=== PATIENT | male | born 1950 | race African-American/Black ===

== ENCOUNTER 2020-09-15 09:37 | Observation (INO) | payer OTHER ==
[2020-09-15 09:55] VITALS: BMI 29.0
[2020-09-15 11:24] LABS: BASO % 0.9 % (0-2.0); EOS % 0.7 % (0-4.5); HEMATOCRIT 42.1 % (35.4-49); LYMPH % 26.5 % (8-40); MCH 31.1 pg (25.7-33.7); MCHC 33.3 g/dl (32.0-35.9); MEAN CELL VOLUME 93.3 fl (80-96); MEAN PLT VOLUME 7.8 fl (7.5-11.1); MONO % 8.1 % (3.8-10.2); NEUT % 63.8 % (42.8-82.8); PLATELET COUNT 416 K/MM3 (134-434); RBC 4.51 M/mm3 (4.00-5.60); RDW 13.7 % (11.9-15.9); WHITE BLOOD COUNT 6.1 K/mm3 (4.0-10.0)
[2020-09-15 11:42] LABS: CHLORIDE 106 mmol/L (98-107); POTASSIUM 4.2 mmol/L (3.5-5.1); SODIUM 137 mmol/L (136-145)
[2020-09-15 11:44] LABS: CALCIUM 9.2 mg/dL (8.5-10.1)
[2020-09-15 11:45] LABS: ALBUMIN 3.4 g/dl (3.4-5.0); ANION GAP 8 MMOL/L (8-16); BLOOD UREA NITROGEN 12.2 mg/dL (7-18); CO2 24 mmol/L (21-32); GLUCOSE,RANDOM 96 mg/dL (74-106)
[2020-09-15 11:48] LABS: CREATININE 1.1 mg/dL (0.55-1.3); SGOT/AST 17 U/L (15-37); SGPT/ALT 24 U/L (13-61)
[2020-09-15 11:50] LABS: BILIRUBIN,TOTAL 0.4 mg/dL (0.2-1); TOT PROT 7.6 g/dl (6.4-8.2)
[2020-09-15 11:51] LABS: ALK PHOS 90 U/L (45-117)
[2020-09-15 13:34] LABS: PH,URINE 5.5 (5.0-8.0); URINE APPEARANCE CLEAR; URINE BILIRUBIN NEGATIVE (NEGATIVE); URINE COLOR DK YELLOW; URINE GLUCOSE (UA) NEGATIVE (NEGATIVE); URINE KETONE TRACE (NEGATIVE); URINE LEUK ESTERASE NEGATIVE (NEGATIVE); URINE NITRITE NEGATIVE (NEGATIVE); URINE PROTEIN TRACE (NEGATIVE)
[2020-09-15] MEDS ORDERED: SODIUM CHLORIDE 1,000 ML IV SCH (16:00)
[2020-09-15] MEDS ORDERED: LISINOPRIL 10 MG TABLET PO SCH (16:30)
[2020-09-15] MEDS ORDERED: ACETAMINOPHEN 500 MG TABLET (FP) PO ONE (17:14)
[2020-09-15] MEDS ORDERED: ACETAMINOPHEN 325 MG TABLET (FP) ONE (17:28)
[2020-09-15] MEDS ORDERED: LISINOPRIL 5 MG TABLET ONE (17:29)
[2020-09-15] MEDS: INSULIN SLIDING SCALE (NOVOLOG) 1 VIAL SQ SCH ×2 (17:35→23:08)
[2020-09-16 06:07] VITALS: BP 149/97; PULSE 77; TEMP 98.3
[2020-09-16 07:16] LABS: HEMATOCRIT 37.9 % (35.4-49); MCH 31.3 pg (25.7-33.7); MCHC 34.2 g/dl (32.0-35.9); MEAN CELL VOLUME 91.6 fl (80-96); MEAN PLT VOLUME 8.4 fl (7.5-11.1); PLATELET COUNT 375 K/MM3 (134-434); RBC 4.14 M/mm3 (4.00-5.60); RDW 13.9 % (11.9-15.9); WHITE BLOOD COUNT 5.9 K/mm3 (4.0-10.0)
[2020-09-16 07:26] LABS: POTASSIUM 3.9 mmol/L (3.5-5.1)
[2020-09-16 07:30] LABS: CALCIUM 8.7 mg/dL (8.5-10.1)
[2020-09-16 07:31] LABS: ALBUMIN 3.1 g/dl (3.4-5.0); BLOOD UREA NITROGEN 15.8 mg/dL (7-18)
[2020-09-16 07:35] LABS: BILIRUBIN,TOTAL 0.6 mg/dL (0.2-1)
[2020-09-16 07:36] LABS: TOT PROT 6.9 g/dl (6.4-8.2)
[2020-09-16] MEDS: INSULIN SLIDING SCALE (NOVOLOG) 1 VIAL SQ SCH (08:00)
[2020-09-16] MEDS ORDERED: amLODIPine BESYLATE 10 MG TABLET (FP) PO SCH ×2 (09:01→09:15)
[2020-09-16] MEDS ORDERED: NICOTINE 14 MG/24 HOURS TOPICAL PATCH TD SCH (10:00)
[2020-09-16] MEDS ORDERED: amLODIPine BESYLATE 5 MG TABLET (FP) ONE (10:19)
== END 2020-09-16 11:30 | disposition home or self-care (01) ==
LOC: JER 09:37 → JERBED 14:10
PROVIDERS: ADMIT Internal Medicine; ATTEND Student in an Organized Health Care Education/Training Program
PROC: 3E0337Z Introduction of Electrolytic and Water Balance Substance into Peripheral Vein, Percutaneous Approach (ICD-10-PCS; principal; 2020-09-15)
DX: I10 Essential (primary) hypertension (principal); R73.03 Prediabetes; Z29.9 Encounter for prophylactic measures, unspecified; E66.3 Overweight; Z68.29 Body mass index [BMI] 29.0-29.9, adult; Z59.0 Homelessness; F17.210 Nicotine dependence, cigarettes, uncomplicated
CPT/HCPCS: 36415; 70450-TC; 71045-TC-FY; 72125-TC; 73523-TC-FY; 80053; 80307; 81003; 82550; 82553; 82962; 83036; 83735; 84100; 84484; 85025; 85027; 87086; 93005; 93010; 93880-TC; 96360; 99285-25; C9803; G0378; U0003

== ENCOUNTER 2021-10-27 09:58 | Inpatient (IN) | payer OTHER ==
[2021-10-27 10:36] VITALS: BMI 25.1
[2021-10-27 12:37] LABS: VENOUS BASE EXCESS -1.9 mmol/L (-2-2); VENOUS O2 SATURATION 25.4 % (70-80); VENOUS PCO2 54.4 mmHg (38-52); VENOUS PH 7.29 (7.310-7.410)
[2021-10-27 12:42] LABS: BASO % 1.2 % (0-2.0); EOS % 1.2 % (0-4.5); HEMATOCRIT 43.1 % (35.4-49); HEMOGLOBIN 13.9 GM/dL (11.7-16.9); LYMPH % 24.9 % (8-40); MCH 29.8 pg (25.7-33.7); MCHC 32.3 g/dl (32.0-35.9); MEAN CELL VOLUME 92.4 fl (80-96); MONO % 11.8 % (3.8-10.2); NEUT % 60.9 % (42.8-82.8); PLATELET COUNT 439 10^3/uL (134-434); RBC 4.66 M/mm3 (4.00-5.60); RDW 14.3 % (11.9-15.9); WHITE BLOOD COUNT 8.6 K/mm3 (4.0-10.0)
[2021-10-27 12:49] LABS: INR 1.15 (0.83-1.09); PROTHROMBIN TIME (PATIENT) 13.3 SEC (9.7-13.0)
[2021-10-27 13:07] LABS: CHLORIDE 105 mmol/L (98-107); SODIUM 139 mmol/L (136-145)
[2021-10-27 13:10] LABS: ALBUMIN 3.3 g/dl (3.4-5.0); ANION GAP 5 MMOL/L (8-16); BLOOD UREA NITROGEN 7.8 mg/dL (7-18); CALCIUM 8.9 mg/dL (8.5-10.1); CO2 29 mmol/L (21-32); GLUCOSE,RANDOM 82 mg/dL (74-106)
[2021-10-27 13:13] LABS: SGPT/ALT 36 U/L (13-61)
[2021-10-27 13:14] LABS: CREATININE 1.1 mg/dL (0.55-1.3); SGOT/AST 18 U/L (15-37)
[2021-10-27 13:15] LABS: BILIRUBIN,TOTAL 0.6 mg/dL (0.2-1); TOT PROT 7.9 g/dl (6.4-8.2)
[2021-10-27 13:16] LABS: ALK PHOS 90 U/L (45-117)
[2021-10-27] MEDS ORDERED: SODIUM CHLORIDE 1,000 ML IV SCH (16:15)
[2021-10-27] MEDS: ENOXAPARIN NA (PORCINE) 40 MG/0.4 ML DISP.SYRIN SQ SCH (16:30)
[2021-10-27] MEDS: ASPIRIN COATED 81 MG TABLET.EC PO SCH (16:45)
[2021-10-27 17:45] LABS: CHOLESTEROL 143 mg/dL (50-200); TRIGLYCERIDES 72 mg/dL (0-150)
[2021-10-27 17:47] LABS: LDL CHOLESTEROL (ONLY SJRH) 78 mg/dL (5-100)
[2021-10-27 17:49] LABS: HDL CHOLESTEROL 51 mg/dL (40-60)
[2021-10-27] MEDS ORDERED: ASPIRIN COATED 81 MG TABLET.EC ONE (18:39)
[2021-10-27] MEDS ORDERED: ENOXAPARIN NA (PORCINE) 40 MG/0.4 ML DISP.SYRIN SQ ONE (18:39)
[2021-10-27] MEDS ORDERED: ALBUTEROL SO4 0.083% IH SOL 2.5 MG/3 ML VIAL.NEB. NEB PRN (18:41)
[2021-10-27] MEDS ORDERED: FUROSEMIDE 40 MG/4 ML INJECTABLE VIAL IVPUSH ONE (18:41)
[2021-10-27] MEDS ORDERED: LABETALOL HCL 200 MG TABLET (FP) PO ONE (20:24)
[2021-10-27] MEDS ORDERED: LABETALOL HCL 100 MG TABLET (FP) ONE (20:26)
[2021-10-27] MEDS ORDERED: ATORVASTATIN CA 40 MG TABLET (FP) ONE (20:26)
[2021-10-27] MEDS ORDERED: ATORVASTATIN CA 40 MG TABLET (FP) PO SCH (22:00)
[2021-10-28] MEDS ORDERED: ASPIRIN COATED 81 MG TABLET.EC ONE (08:50)
[2021-10-28] MEDS ORDERED: ENOXAPARIN NA (PORCINE) 40 MG/0.4 ML DISP.SYRIN SQ ONE (08:51)
[2021-10-28 08:55] LABS: CHLORIDE 104 mmol/L (98-107); SODIUM 136 mmol/L (136-145)
[2021-10-28 08:57] LABS: HEMOGLOBIN 12.9 GM/dL (11.7-16.9); MCH 30.2 pg (25.7-33.7); MCHC 33.1 g/dl (32.0-35.9); MEAN CELL VOLUME 91.2 fl (80-96); MEAN PLT VOLUME 8.1 fl (7.5-11.1); PLATELET COUNT 425 10^3/uL (134-434); RBC 4.28 M/mm3 (4.00-5.60); RDW 14.2 % (11.9-15.9); WHITE BLOOD COUNT 9.3 K/mm3 (4.0-10.0)
[2021-10-28 09:04] LABS: CALCIUM 8.7 mg/dL (8.5-10.1)
[2021-10-28 09:05] LABS: ALBUMIN 3.2 g/dl (3.4-5.0); ANION GAP 8 MMOL/L (8-16); BLOOD UREA NITROGEN 13.8 mg/dL (7-18); CO2 24 mmol/L (21-32); GLUCOSE,RANDOM 90 mg/dL (74-106); MAGNESIUM 2.1 mg/dL (1.8-2.4)
[2021-10-28 09:08] LABS: CREATININE 1.1 mg/dL (0.55-1.3); PHOSPHOROUS 4.1 mg/dL (2.5-4.9); SGOT/AST 16 U/L (15-37); SGPT/ALT 31 U/L (13-61)
[2021-10-28 09:09] LABS: TOT PROT 7.5 g/dl (6.4-8.2)
[2021-10-28 09:10] LABS: BILIRUBIN,TOTAL 0.9 mg/dL (0.2-1)
[2021-10-28 09:11] LABS: ALK PHOS 83 U/L (45-117)
[2021-10-28] MEDS: ASPIRIN COATED 81 MG TABLET.EC PO SCH (09:45)
[2021-10-28] MEDS: ENOXAPARIN NA (PORCINE) 40 MG/0.4 ML DISP.SYRIN SQ SCH (09:45)
[2021-10-28] MEDS ORDERED: CLOPIDOGREL BISULFATE 75 MG TABLET (FP) PO SCH (10:00)
[2021-10-28] MEDS ORDERED: LABETALOL HCL 100 MG TABLET (FP) PO SCH (10:00)
[2021-10-28] MEDS ORDERED: FUROSEMIDE 40 MG/4 ML INJECTABLE VIAL IVPUSH SCH (10:00)
[2021-10-28] MEDS: LISINOPRIL 10 MG TABLET PO SCH (17:39)
[2021-10-28 17:57] LABS: N-TERMINAL BNP 615.1 pg/ml (5-125)
[2021-10-28] MEDS ORDERED: ALBUTEROL SO4 0.083% IH SOL 2.5 MG/3 ML VIAL.NEB. NEB PRN (19:53)
[2021-10-28] MEDS ORDERED: ACETAMINOPHEN 1000 MG/100 ML BAG IVPB ONE (20:30)
[2021-10-28] MEDS: LABETALOL HCL 100 MG TABLET (FP) PO SCH (21:34)
[2021-10-28] MEDS: ATORVASTATIN CA 40 MG TABLET (FP) PO SCH (21:34)
[2021-10-29 08:12] LABS: BASO % 0.4 % (0-2.0); EOS % 0.6 % (0-4.5); HEMOGLOBIN 12.8 GM/dL (11.7-16.9); MCH 29.8 pg (25.7-33.7); MCHC 32.9 g/dl (32.0-35.9); MEAN CELL VOLUME 90.7 fl (80-96); MEAN PLT VOLUME 7.7 fl (7.5-11.1); MONO % 10.6 % (3.8-10.2); NEUT % 70.4 % (42.8-82.8); PLATELET COUNT 410 10^3/uL (134-434); WHITE BLOOD COUNT 8.3 K/mm3 (4.0-10.0)
[2021-10-29 08:36] LABS: ALBUMIN 2.9 g/dl (3.4-5.0); BLOOD UREA NITROGEN 16.8 mg/dL (7-18); CALCIUM 8.8 mg/dL (8.5-10.1)
[2021-10-29 08:39] LABS: MAGNESIUM 2.5 mg/dL (1.8-2.4); PHOSPHOROUS 3.9 mg/dL (2.5-4.9)
[2021-10-29 08:40] LABS: CREATININE 0.9 mg/dL (0.55-1.3)
[2021-10-29 08:41] LABS: BILIRUBIN,TOTAL 0.7 mg/dL (0.2-1)
[2021-10-29] MEDS: CLOPIDOGREL BISULFATE 75 MG TABLET (FP) PO SCH (10:54)
[2021-10-29] MEDS: ENOXAPARIN NA (PORCINE) 40 MG/0.4 ML DISP.SYRIN SQ SCH (10:54)
[2021-10-29] MEDS: LABETALOL HCL 100 MG TABLET (FP) PO SCH ×2 (10:55→21:25)
[2021-10-29] MEDS: LISINOPRIL 10 MG TABLET PO SCH (10:55)
[2021-10-29] MEDS: ASPIRIN COATED 81 MG TABLET.EC PO SCH (10:55)
[2021-10-29 15:35] LABS: LACTIC ACID 2.4 mmol/L (0.4-2.0)
[2021-10-29 19:28] LABS: LACTIC ACID 2.7 mmol/L (0.4-2.0)
[2021-10-29] MEDS ORDERED: SODIUM CHLORIDE 500 ML IV STA (19:56)
[2021-10-29] MEDS: ATORVASTATIN CA 40 MG TABLET (FP) PO SCH (21:25)
[2021-10-30 07:52] LABS: BASO % 0.7 % (0-2.0); HEMATOCRIT 36.7 % (35.4-49); HEMOGLOBIN 11.9 GM/dL (11.7-16.9); LYMPH % 21.4 % (8-40); MCH 29.6 pg (25.7-33.7); MCHC 32.4 g/dl (32.0-35.9); MEAN CELL VOLUME 91.6 fl (80-96); MEAN PLT VOLUME 8.1 fl (7.5-11.1); MONO % 9.6 % (3.8-10.2); NEUT % 66.3 % (42.8-82.8); PLATELET COUNT 395 10^3/uL (134-434); RBC 4.01 M/mm3 (4.00-5.60); RDW 14.2 % (11.9-15.9); WHITE BLOOD COUNT 8.3 K/mm3 (4.0-10.0)
[2021-10-30 08:21] LABS: ALBUMIN 2.7 g/dl (3.4-5.0); CALCIUM 8.4 mg/dL (8.5-10.1)
[2021-10-30 08:22] LABS: BLOOD UREA NITROGEN 14.8 mg/dL (7-18); MAGNESIUM 2.4 mg/dL (1.8-2.4)
[2021-10-30 08:26] LABS: BILIRUBIN,TOTAL 0.4 mg/dL (0.2-1); TOT PROT 6.6 g/dl (6.4-8.2)
[2021-10-30] MEDS ORDERED: LABETALOL HCL 100 MG TABLET (FP) PO SCH (08:27)
[2021-10-30] MEDS ORDERED: LABETALOL HCL 200 MG TABLET (FP) PO ONE (08:28)
[2021-10-30] MEDS: ENOXAPARIN NA (PORCINE) 40 MG/0.4 ML DISP.SYRIN SQ SCH (09:33)
[2021-10-30] MEDS: ASPIRIN COATED 81 MG TABLET.EC PO SCH (09:33)
[2021-10-30] MEDS: CLOPIDOGREL BISULFATE 75 MG TABLET (FP) PO SCH (09:33)
[2021-10-30] MEDS: LISINOPRIL 20 MG TABLET PO SCH (09:33)
[2021-10-30] MEDS: ATORVASTATIN CA 40 MG TABLET (FP) PO SCH (21:22)
[2021-10-30] MEDS: LABETALOL HCL 200 MG TABLET (FP) PO SCH (21:22)
[2021-10-31] MEDS: LABETALOL HCL 200 MG TABLET (FP) PO SCH (10:55)
[2021-10-31] MEDS: LISINOPRIL 20 MG TABLET PO SCH (10:55)
[2021-10-31] MEDS: CLOPIDOGREL BISULFATE 75 MG TABLET (FP) PO SCH (10:55)
[2021-10-31] MEDS: ENOXAPARIN NA (PORCINE) 40 MG/0.4 ML DISP.SYRIN SQ SCH (10:55)
[2021-10-31] MEDS: ASPIRIN COATED 81 MG TABLET.EC PO SCH (10:55)
[2021-10-31 16:27] VITALS: BP 135/70; PULSE 57; TEMP 98.5
== END 2021-10-31 17:45 | DRG 65 ==
LOC: JER 09:58 → JERBED 13:47 → J4S 10-28 13:45 → J6S 10-31 06:19
PROVIDERS: ADMIT Internal Medicine; ATTEND Internal Medicine
DX: I63.89 Other cerebral infarction (principal); R29.702 NIHSS score 2; I16.1 Hypertensive emergency; E87.2 Acidosis; R29.810 Facial weakness; E11.9 Type 2 diabetes mellitus without complications; C61 Malignant neoplasm of prostate; F17.200 Nicotine dependence, unspecified, uncomplicated; E78.5 Hyperlipidemia, unspecified
CPT/HCPCS: 36415; 70450-TC; 70496-TC; 70498-TC; 70551-TC; 71045-TC-FY; 80053; 80061; 82272; 82550; 82803; 83036; 83605; 83735; 83880; 84100; 84439; 84443; 84484; 85025; 85027; 85610; 86850; 86900; 86901; 87040; 93005; 93010; 93306-TC; 93880-TC; 97116-GP; 97161-GP; 99285-25; C9803; J0131; Q9967; U0003; U0005

== ENCOUNTER 2022-01-21 17:08 | Inpatient (IN) | payer OTHER ==
[2022-01-21 17:42] VITALS: BMI 20.9
[2022-01-21 18:36] LABS: BASO % 1.2 % (0-2.0); HEMOGLOBIN 11.6 GM/dL (11.7-16.9); LYMPH % 27.3 % (8-40); MCH 31.9 pg (25.7-33.7); MCHC 33.3 g/dl (32.0-35.9); MEAN CELL VOLUME 96.1 fl (80-96); MEAN PLT VOLUME 7.7 fl (7.5-11.1); MONO % 13.7 % (3.8-10.2); NEUT % 52.8 % (42.8-82.8); PLATELET COUNT 363 10^3/uL (134-434); RBC 3.64 M/mm3 (4.00-5.60); RDW 14.2 % (11.9-15.9); WHITE BLOOD COUNT 5.2 K/mm3 (4.0-10.0)
[2022-01-21 18:54] LABS: CALCIUM 9.1 mg/dL (8.5-10.1)
[2022-01-21 18:55] LABS: ALBUMIN 3.2 g/dl (3.4-5.0); BLOOD UREA NITROGEN 13.8 mg/dL (7-18)
[2022-01-21 18:58] LABS: CREATININE 0.8 mg/dL (0.55-1.3)
[2022-01-21 18:59] LABS: TOT PROT 7.1 g/dl (6.4-8.2)
[2022-01-21 19:00] LABS: BILIRUBIN,TOTAL 0.2 mg/dL (0.2-1)
[2022-01-21] MEDS ORDERED: ASPIRIN 81 MG CHEWABLE TABLETS PO ONE (21:16)
[2022-01-21] MEDS ORDERED: ASPIRIN 81 MG CHEWABLE TABLETS ONE (21:25)
[2022-01-21] MEDS ORDERED: MAG HYDROX/AL HYDROX/SIMETH 30 ML UNIT-DOSE CUP PO PRN (22:47)
[2022-01-21] MEDS ORDERED: ALBUTEROL SO4 0.083% IH SOL 2.5 MG/3 ML VIAL.NEB. NEB PRN (23:02)
[2022-01-22 07:36] LABS: HEMATOCRIT 34.2 % (35.4-49); HEMOGLOBIN 11.6 GM/dL (11.7-16.9); MCH 32.5 pg (25.7-33.7); MCHC 33.9 g/dl (32.0-35.9); MEAN CELL VOLUME 95.9 fl (80-96); MEAN PLT VOLUME 7.7 fl (7.5-11.1); PLATELET COUNT 347 10^3/uL (134-434); RBC 3.57 M/mm3 (4.00-5.60); RDW 14.3 % (11.9-15.9); WHITE BLOOD COUNT 5.3 K/mm3 (4.0-10.0)
[2022-01-22 07:37] LABS: CALCIUM 8.7 mg/dL (8.5-10.1)
[2022-01-22 07:39] LABS: ALBUMIN 3.3 g/dl (3.4-5.0); BLOOD UREA NITROGEN 13.4 mg/dL (7-18)
[2022-01-22 07:41] LABS: CREATININE 0.8 mg/dL (0.55-1.3)
[2022-01-22 07:42] LABS: PHOSPHOROUS 3.6 mg/dL (2.5-4.9); TOT PROT 6.8 g/dl (6.4-8.2)
[2022-01-22 07:44] LABS: BILIRUBIN,TOTAL 0.3 mg/dL (0.2-1)
[2022-01-22] MEDS: ASPIRIN COATED 81 MG TABLET.EC PO SCH (09:08)
[2022-01-22] MEDS: ENOXAPARIN NA (PORCINE) 40 MG/0.4 ML DISP.SYRIN SQ SCH (09:09)
[2022-01-22] MEDS: PANTOPRAZOLE SODIUM 40 MG VIAL IVPUSH SCH ×2 (09:09)
[2022-01-22 09:36] LABS: PH,URINE 8.5 (5.0-8.0); URINE APPEARANCE TURBID; URINE BILIRUBIN NEGATIVE (NEGATIVE); URINE COLOR YELLOW; URINE GLUCOSE (UA) NEGATIVE (NEGATIVE); URINE KETONE NEGATIVE (NEGATIVE); URINE PROTEIN TRACE (NEGATIVE); URINE UROBILINOGEN 0.2 mg/dL (0.2-1.0)
[2022-01-22 09:37] LABS: URINE LEUK ESTERASE 2+ (NEGATIVE); URINE NITRITE POSITIVE (NEGATIVE)
[2022-01-22 09:39] LABS: EPI CELLS 1 /uL (0-25.1); HYALINE CASTS 6 /uL (0-3.1); URINE BACTERIA >9,000 /uL (0-1359); URINE RBC 4 /uL (0-23.9); URINE WBC 314 /uL (0-25.8)
[2022-01-22] MEDS ORDERED: LISINOPRIL 20 MG TABLET PO SCH (10:00)
[2022-01-22] MEDS ORDERED: LABETALOL HCL 100 MG TABLET (FP) PO SCH (10:00)
[2022-01-22] MEDS ORDERED: DEXTROSE 5%-WATER - 50 ML IVPB ONE (13:50)
[2022-01-22] MEDS ORDERED: cefTRIAXone SODIUM 1 GM VIAL ONE (13:50)
[2022-01-22] MEDS: CEFTRIAXONE 1 GM in DEXTROSE 5%-WATER - 50 ML IVPB SCH (15:14)
[2022-01-22] MEDS: ATORVASTATIN CA 40 MG TABLET (FP) PO SCH (21:16)
[2022-01-23] MEDS ORDERED: cefTRIAXone SODIUM 1 GM VIAL ONE (07:58)
[2022-01-23] MEDS ORDERED: DEXTROSE 5%-WATER - 50 ML IVPB ONE (07:59)
[2022-01-23] MEDS: ENOXAPARIN NA (PORCINE) 40 MG/0.4 ML DISP.SYRIN SQ SCH (09:19)
[2022-01-23] MEDS: CEFTRIAXONE 1 GM in DEXTROSE 5%-WATER - 50 ML IVPB SCH (09:19)
[2022-01-23] MEDS: PANTOPRAZOLE SODIUM 40 MG VIAL IVPUSH SCH (09:19)
[2022-01-23] MEDS: ASPIRIN COATED 81 MG TABLET.EC PO SCH (09:20)
[2022-01-23] MEDS: ATORVASTATIN CA 40 MG TABLET (FP) PO SCH (21:31)
[2022-01-24 07:49] LABS: HEMATOCRIT 37.7 % (35.4-49); HEMOGLOBIN 12.5 GM/dL (11.7-16.9); MCH 31.7 pg (25.7-33.7); MCHC 33.2 g/dl (32.0-35.9); MEAN CELL VOLUME 95.3 fl (80-96); MEAN PLT VOLUME 7.9 fl (7.5-11.1); PLATELET COUNT 379 10^3/uL (134-434); RBC 3.96 M/mm3 (4.00-5.60); RDW 13.9 % (11.9-15.9); WHITE BLOOD COUNT 4.9 K/mm3 (4.0-10.0)
[2022-01-24 07:50] LABS: BLOOD UREA NITROGEN 12.4 mg/dL (7-18)
[2022-01-24 07:54] LABS: CREATININE 0.8 mg/dL (0.55-1.3)
[2022-01-24] MEDS ORDERED: cefTRIAXone SODIUM 1 GM VIAL ONE (08:07)
[2022-01-24] MEDS ORDERED: DEXTROSE 5%-WATER - 50 ML IVPB ONE (08:08)
[2022-01-24] MEDS: ENOXAPARIN NA (PORCINE) 40 MG/0.4 ML DISP.SYRIN SQ SCH (09:16)
[2022-01-24] MEDS: ASPIRIN COATED 81 MG TABLET.EC PO SCH (09:16)
[2022-01-24] MEDS: PANTOPRAZOLE SODIUM 40 MG VIAL IVPUSH SCH (09:17)
[2022-01-24] MEDS: CEFTRIAXONE 1 GM in DEXTROSE 5%-WATER - 50 ML IVPB SCH (09:17)
[2022-01-24] MEDS: LISINOPRIL 20 MG TABLET PO SCH (09:19)
[2022-01-24] MEDS: CLOPIDOGREL BISULFATE 75 MG TABLET (FP) PO SCH (10:56)
[2022-01-24] MEDS: ATORVASTATIN CA 40 MG TABLET (FP) PO SCH (21:48)
[2022-01-25] MEDS ORDERED: cefTRIAXone SODIUM 1 GM VIAL ONE (09:06)
[2022-01-25] MEDS ORDERED: DEXTROSE 5%-WATER - 50 ML IVPB ONE (09:07)
[2022-01-25] MEDS: ASPIRIN COATED 81 MG TABLET.EC PO SCH (09:10)
[2022-01-25] MEDS: CLOPIDOGREL BISULFATE 75 MG TABLET (FP) PO SCH (09:10)
[2022-01-25] MEDS: PANTOPRAZOLE SODIUM 40 MG VIAL IVPUSH SCH (09:10)
[2022-01-25] MEDS: ENOXAPARIN NA (PORCINE) 40 MG/0.4 ML DISP.SYRIN SQ SCH (09:10)
[2022-01-25] MEDS: CEFTRIAXONE 1 GM in DEXTROSE 5%-WATER - 50 ML IVPB SCH (09:10)
[2022-01-25] MEDS: LISINOPRIL 20 MG TABLET PO SCH (09:10)
[2022-01-25] MEDS: ATORVASTATIN CA 40 MG TABLET (FP) PO SCH (22:27)
[2022-01-26] MEDS ORDERED: cefTRIAXone SODIUM 1 GM VIAL ONE (08:45)
[2022-01-26] MEDS ORDERED: DEXTROSE 5%-WATER - 50 ML IVPB ONE (08:45)
[2022-01-26] MEDS: ASPIRIN COATED 81 MG TABLET.EC PO SCH (09:01)
[2022-01-26] MEDS: CEFTRIAXONE 1 GM in DEXTROSE 5%-WATER - 50 ML IVPB SCH (09:01)
[2022-01-26] MEDS: LISINOPRIL 20 MG TABLET PO SCH (09:01)
[2022-01-26] MEDS: PANTOPRAZOLE SODIUM 40 MG VIAL IVPUSH SCH (09:01)
[2022-01-26] MEDS: CLOPIDOGREL BISULFATE 75 MG TABLET (FP) PO SCH (09:01)
[2022-01-26] MEDS: ENOXAPARIN NA (PORCINE) 40 MG/0.4 ML DISP.SYRIN SQ SCH (09:01)
[2022-01-26 10:29] VITALS: TEMP 97.8
[2022-01-26 16:15] VITALS: BP 140/90; PULSE 80
== END 2022-01-26 18:30 | DRG 64 ==
LOC: JER 17:08 → JERBED 21:18 → J4W 23:37
PROVIDERS: ADMIT Hospitalist
DX: I63.9 Cerebral infarction, unspecified (principal); G92.8 Other toxic encephalopathy; I69.354 Hemiplegia and hemiparesis following cerebral infarction affecting left non-dominant side; E11.9 Type 2 diabetes mellitus without complications; C61 Malignant neoplasm of prostate; F03.90 Unspecified dementia, unspecified severity, without behavioral disturbance, psychotic disturbance, mood disturbance, and anxiety; D64.9 Anemia, unspecified; E78.5 Hyperlipidemia, unspecified; N30.90 Cystitis, unspecified without hematuria; F17.200 Nicotine dependence, unspecified, uncomplicated; K21.9 Gastro-esophageal reflux disease without esophagitis; R29.702 NIHSS score 2; I11.9 Hypertensive heart disease without heart failure; B96.4 Proteus (mirabilis) (morganii) as the cause of diseases classified elsewhere
CPT/HCPCS: 36415; 70450-TC; 70551-TC; 71045-TC-FY; 80048; 80053; 80061; 81003; 82962; 83036; 83605; 83690; 83735; 84100; 84439; 84443; 84484; 85025; 85027; 86780; 87086; 87186; 93005; 93010; 97116-GP; 97162-GP; 99285-25; C9803-CS; U0003; U0005